=== PATIENT | female | born 1995 | race Caucasian/White ===

== ENCOUNTER → 2023-07-05 08:55 | Outpatient (CLI) | payer BC, SELFPAY ==
--- NOTE | ~2023-07-05 | US_ITS ---
US thyroid INDICATION: Thyroid goiter TECHNIQUE: Real-time sonographic images of the thyroid gland were obtained. COMPARISON: No prior studies for comparison. FINDINGS: The right thyroid lobe measures 4.2 x 1.2 x 1.4 cm. The left thyroid lobe measures 4.8 x 1 .9 x 1.6 cm. In the left lobe there is a mixed solid and cystic mass measuring 2.9 x 1.5 x 2.5 cm whi ch is hypoechoic, wider than tall, smoothly marginated without echogenic foci, TR 3. Normal vascular flow is present. IMPRESSION: 1. Mixed solid and cystic 2.9 cm left thyroid mass, TR 3. Ultrasound-guided fine-needle aspiration biopsy recommended. Reviewed, dictated and finalized at location A.
== END ==
PROVIDERS: PCP Nurse Practitioner Family; Visit Provider Nurse Practitioner Family
DX: E04.9 Nontoxic goiter, unspecified (principal)
CPT/HCPCS: 76536

== ENCOUNTER 2023-07-24 12:43 | Outpatient (CLI) | payer BC, SELFPAY ==
--- NOTE | ~2023-07-24 | US_ITS ---
EXAMINATION: US FNA w image guidance DATE: 07/24/2023 13:56 INDICATION: Disorder of thyroid. Thyroid nodule. TECHNIQUE: A time-out was performed to verify the patient's name, date of , and procedure to be performed . The procedure and its benefits and risks were discussed with the patient. Risks specifically discus sed included bleeding and infection. The patient understood the risks and agreed to proceed. The neck was prepped and draped in the usual sterile manner. 3 mL 1% lidocaine was used for local anesthesia . 6 passes were made with a 25G needle into the lesion. There is internal bleeding into the cystic c omponent of the nodule. At the conclusion of the biopsy 21G needle was advanced into the central cyst ic component of the lesion to aspirate as much fluid as possible. Appropriate needle location was doc umented with continuous sonographic guidance. Following the biopsy, pressure was held for a few minut es and a sterile bandage was applied. There were no immediate complications. FINDINGS: Grayscale ultrasound images demonstrate biopsy needles advanced into the peripheral solid components of the previously noted 2.9 cm mixed solid and cystic TI RADS 3 nodule. IMPRESSION: 1. Successful ultrasound-guided fine needle aspiration of the solid components of a 2.9 cm TI RADS 3 left thyroid nodule. Reviewed, dictated and finalized at location A. [facility] [employer]
== END 2023-07-24 12:44 | disposition home or self-care (01) ==
PROVIDERS: PCP Nurse Practitioner Family; Visit Provider Nurse Practitioner Family
DX: E07.9 Disorder of thyroid, unspecified (principal)
CPT/HCPCS: 10005; 88173; 88305